=== PATIENT | male | born 1970 | race Caucasian/White ===

== ENCOUNTER 2017-05-27 13:50 | Outpatient (CLI) | payer OTHER ==
--- NOTE | 2017-05-27 16:41 | XRAY Report ---
THREE VIEW LEFT FOOT: 05/27/2017 CLINICAL INDICATION: Foot pain. FINDINGS: AP, lateral, oblique views of the left foot demonstrate no evidence of acute fracture or dislocation. Small plantar and posterior calcaneal spurs are present. No radiopaque foreign body is seen in the soft tissues. IMPRESSION: MILD DEGENERATIVE CHANGES, WITH CALCANEAL SPURRING. NO EVIDENCE OF FRACTURE. TD: 05/27/2017 16:40
== END 2017-05-27 13:51 | disposition home or self-care (01) ==
LOC: DI.N 13:50
PROVIDERS: ATTEND Family Medicine
DX: M19.072 Primary osteoarthritis, left ankle and foot (principal); M77.32 Calcaneal spur, left foot

== ENCOUNTER 2017-06-11 07:40 | Outpatient (CLI) | payer OTHER ==
[2017-06-11 12:40] LABS: BASOPHILS # (AUTO) 0.1 10^3/uL (0.0-0.1); BASOPHILS % (AUTO) 1.4 %; EOSINOPHILS # (AUTO) 0.3 10^3/uL (0.0-0.7); EOSINOPHILS % (AUTO) 5.8 %; HGB - HEMOGLOBIN 15.3 g/dL (14.0-18.0); LYMPHOCYTES # (AUTO) 1.5 10^3/uL (1.5-3.5); LYMPHOCYTES % (AUTO) 30.5 %; MEAN CORPUSCULAR HEMOGLOBIN 27.5 pg (27.0-31.0); MEAN CORPUSCULAR HGB CONC 34.4 g/dL (32.0-36.0); MEAN CORPUSCULAR VOLUME 79.9 fL (80.0-94.0); MEAN PLATELET VOLUME 7.3 fL (7.4-11.4); MONOCYTES # (AUTO) 0.4 10^3/uL (0.0-1.0); MONOCYTES % (AUTO) 8.3 %; NEUTROPHILS # (AUTO) 2.7 10^3/uL (1.5-6.6); PLT - PLATELET COUNT 328 10^3/uL (130-450); RED BLOOD COUNT 5.57 10^6/uL (4.70-6.10); WHITE BLOOD COUNT 5.1 x10^3/uL (4.8-10.8)
[2017-06-11 13:05] LABS: ALBUMIN 4.4 g/dL (3.2-5.5); ALBUMIN/GLOBULIN RATIO 1.6 (1.0-2.2); ALKALINE PHOSPHATASE 66 IU/L (42-121); ALT ALANINE AMINOTRANSFERASE 39 IU/L (10-60); AST ASPARTATE AMINOTRANSFERASE 23 IU/L (10-42); BILIRUBIN,TOTAL 0.4 mg/dL (0.2-1.0); BUN - BLOOD UREA NITROGEN 8 mg/dL (6-20); CALCIUM 9.2 mg/dL (8.5-10.3); CARBON DIOXIDE - CO2 24 mmol/L (21-32); CHLORIDE 102 mmol/L (101-111); CHOLESTEROL 199 mg/dL; CREATININE 0.8 mg/dL (0.6-1.2); GFR - MDRD 104 (>89); GLUCOSE 102 mg/dL (70-100); HDL CHOLESTEROL 40 mg/dL; LDL CHOLESTEROL,CALCULATED 131 mg/dL; LDL/HDL RATIO 3.3 (<3.6); SODIUM 137 mmol/L (135-145); TOTAL PROTEIN 7.2 g/dL (6.7-8.2); VLDL CHOLESTEROL 28 mg/dL
== END 2017-06-11 07:41 | disposition home or self-care (01) ==
LOC: LAB.N 07:40
PROVIDERS: ATTEND Family Medicine
DX: I10 Essential (primary) hypertension (principal); E66.9 Obesity, unspecified
CPT/HCPCS: 36415; 80053; 80061; 83721; 84443; 85025

== ENCOUNTER 2017-08-12 11:08 | Outpatient (CLI) | payer OTHER | END 2017-08-12 11:09 | disposition home or self-care (01) | LOC: NS 11:08 | PROVIDERS: ATTEND Surgery | DX: Z71.3 Dietary counseling and surveillance (principal); E66.8 Other obesity; K58.1 Irritable bowel syndrome with constipation | CPT/HCPCS: 97802 ==

== ENCOUNTER 2022-09-12 08:57 | Outpatient (CLI) | payer OTHER ==
--- NOTE | 2022-09-12 09:54 | SLEEP CARE CONSULTATION ---
Information from patient questionnaire entered by Macy Zarate. I have reviewed and concur with the information entered by Macy Zarate. This document represents the service I personally performed and the decisions made by me, Leatha Pino ARNP. History of Present Illness Service Date and Time: 09/12/2022 0857 Reason for Visit: New patient, sleep apnea on CPAP therapy Chief Complaint: reports: Other (update supplies) Date of Onset: 15+ years Usual bedtime: 10 PM-1 AM Time it takes to fall asleep: 1.5 hrs Snores at night: Yes Observed to quit breathing while asleep: No Sleeps alone due to snoring: No Number of times waking at night: 2-3 Reasons for waking at night: reports: Bathroom Toss, Turn, or Twitch while sleeping: Yes Recalls having dreams: No Usually gets out of bed at: [id number] Feels refreshed in the morning: Yes Morning headache: Yes (occasionally/ resolves in couple hours) Sleepy or fatigued during the day: No Ever fallen asleep while driving: No Takes day naps: No Dreams during day naps: No Prior sleep studies: Yes Year and Where: [facility] Apr 2021 Additional HPI information: ZANDRA RODRIGUEZ was previously diagnosed to have severe, AHI 34.2, obstructive sleep apnea-hypopnea syndrome at [facility] per pt on 04/22/2021 and comes in today to establish care for CPAP therapy. - Parasomnia Symptoms Ever been unable to move upon waking from sleep: No Walks in sleep: No Talks in sleep: No Ever acted out dreams in sleep: No Ever felt weak in the knees when startled or emotional: No Bothered by creepy, crawly, restless sensations in legs: No Problems with memory or concentration: No CPAP Compliance Data - Data Reviewed with Patient Average duration of nightly device use: 6 hours 3 minutes Compliance rate %: 92.1 (145/152 days used) Current pressure setting (cmH2O): 6-16 Average residual AHI: 0.4 Central apnea: 0.1 Average large leak: 2.6 lpm Compliance data discussion: He has a Ilsa II machine. He is using a Dreamwear nasal cushion, medium wide. He was using [employer] but they do not take current insurance. He does have a back up mask. Subjective Missed days of use due to: reports: travel (camping), other (fell asleep without once) Patient concerns: denies: aerophagia, mask discomfort, air blowing in eyes, mask leak noise, condensation in mask/hose, nasal congestion, dry mouth, nose, throat, epistaxis Observed to snore while using device: No Current pressure setting perceived as: comfortable On therapy, patient: reports: sleeping better, awakening more refreshed, being more awake and alert during the day, more rested overall. 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 Patient is Single and lives in . Have you smoked in the past 12 months: Yes (has occasional cigar) Cigarettes per day (20/pack): 40 Years of smokin Quit date: 05-22-2008 Smoking Pack Years: 50.0 Alcohol use: No Caffeine use: Yes Caffeine amount and frequency: 2-3 cups daily Family History Family history of sleep disordered breathing: No Allergies and Home Medications Known drug allergies: Yes (Sulfa; Lisinopril) Drug allergies reviewed: Yes Home medication list reviewed: Yes Allergy and home medication list: Medications: Albuterol sulfate 90 mcg 1-2 puffs four times a day as needed Amlodipine 5 mg daily Atorvastatin 20 mg daily Azelatine 0.05% eye drops twice day as needed Fioricet, prn Calcipotriene, topical Clobetasol, topical docusate sodium, daily Advair twice daily Ibuprofen, prn Metoprolol 25 mg daily Mupirocin, prn Paxlovid Psyllium nightly Sumatriptan Trazodone Review of Systems Weight loss over past 5 years: 35 with portion control Cardiovascular: reports: high blood pressure Respiratory: reports: shortness of breath Gastrointestinal: reports: heartburn Urinary: reports: frequency Neurological: reports: headaches Psychiatric: reports: Attention Deficit Hyperactivity, anxiety, depression Ear/Nose/Throat: reports: nasal congestion, sinus problems, wisdom teeth removed Musculoskeletal: reports: joint pain, back pain Immunologic: reports: sneezing Physical Exam Vital signs obtained and entered by: Leatha E, DIE CASTING MACHINE MAINTAINER Blood Pressure: 138/98 Cuff size: wrist (right) Heart Rate: 65 O2 Saturation: 97 Height: 5 ft 9 in Weight: 280 lb 9.6 oz Body Mass Index: 41.4 BMI Classification: Morbidly Obese Heart: regular rate and rhythm Lungs: clear bilaterally Impression and Plan 1. Obstructive Sleep Apnea-Hypopnea Syndrome, severe, with good treatment compliance and good apnea control. On CPAP therapy, the patient has better sleep quality and is more rested overall. Patient states he has had a change in insurance and needs a new DME supplier. He has [employer] who normally uses [employer]. We do not yet have a copy of his last sleep study or other records and as soon as I have them I can update his prescription and transfer him to new DME supplier. Patient has significant improvement of their sleep apnea and is satisfied with current CPAP therapy. Patient denies problems with oral dryness, nasal congestion, epistaxis, skin irritation or aerophagia. Patient's apnea severity and rationale for treatment to reduce apnea, improve sleep quality and reduce cardiovascular and cerebrovascular events was reviewed. I also reviewed the benefit of consistent device use of CPAP for hypertension, depression/anxiety, attention deficit and gastric reflux. 2. Obesity, unspecified. Currently patients BMI is 41.4. He has been losing weight with portion control and has lost about 35 pounds. Obesity increases the risk of apnea, CPAP pressure requirements and overall health risks especially cardiovascular and diabetes. Thus patient is advised to continue to try to lose weight. * Continue auto CPAP pressure at 6-16 cmH2O * Update supply prescription once we have records * Notify me if snoring with mask or feeling that the pressure is too much or too little * Continue to try to lose weight * Call this office if any problems using CPAP * Return for follow up in 1 year, or sooner if concerns arise Counseling Topics: Spare mask, Weight loss health impact Visit Type: In Office Time Spent with Patient (minutes): 32 Provider Statement: I spent 100% of the Face to Face Visit with the patient with greater than 50% spent counseling the patient and coordination of care.
[2022-09-12 09:57] VITALS: BP 138/98
== END 2022-09-12 08:58 | disposition home or self-care (01) ==
LOC: SC 08:57
PROVIDERS: ATTEND Nurse Practitioner Family
DX: G47.33 Obstructive sleep apnea (adult) (pediatric) (principal); E66.01 Morbid (severe) obesity due to excess calories; Z68.41 Body mass index [BMI] 40.0-44.9, adult; Z87.891 Personal history of nicotine dependence
CPT/HCPCS: 99203; 99212